=== PATIENT | male | born 2000 ===

== ENCOUNTER 2022-04-14 00:34 | Emergency (ER) | payer MEDICAID ==
[~2022-04-14] VITALS: Ht 187 cm; Wt 100.0 kg
[2022-04-14] MEDS ORDERED: RX-NAPROXEN (NAPROSYN) 250 MG TAB PPK#4 PO STA (02:44)
[2022-04-14 02:46] VITALS: BP 119/81
[2022-04-14] MEDS ORDERED: NAPR500T8 PO (02:46)
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
--- NOTE | 2022-04-14 06:54 | Diagnostic Imaging Report ---
INDICATION: forearm pain COMPARISON: None. FINDINGS: Multiple radiographic views of the left forearm were obtained and show no fractures, dislocations, or other acute bony abnormalities. Joint spaces are well maintained throughout. The soft tissues appear unremarkable. No unexpected radiopaque foreign bodies are identified. IMPRESSION: Unremarkable radiographic exam of the left forearm. Dictated by: Dictated on workstation # [id number]
--- NOTE | 2022-04-14 06:55 | Diagnostic Imaging Report ---
Indication: Upper left arm pain. Comparison: None. Discussion: Two views of left humerus were obtained. No acute fracture, dislocation, or other osseous abnormality identified. No significant degenerative disease. Alignment is anatomic. Soft tissues are unremarkable. Impression: 1. Negative left humerus. Dictated by: Dictated on workstation # [id number]
--- NOTE | 2022-04-14 06:56 | Diagnostic Imaging Report ---
Indication: Left elbow pain. Comparison: None. Discussion: Four views of the left elbow were obtained. No acute fracture, dislocation, or other osseous abnormality identified. No significant degenerative disease. Alignment is anatomic. Soft tissues are unremarkable. No effusion. Impression: 1. Negative left elbow. Dictated by: Dictated on workstation # [id number]
== END 2022-04-14 02:56 | disposition home or self-care (01) ==
LOC: ER 00:38
DX: S50.02XA Contusion of left elbow, initial encounter (principal); F17.290 Nicotine dependence, other tobacco product, uncomplicated; V28.4XXA Motorcycle driver injured in noncollision transport accident in traffic accident, initial encounter; Y93.55 Activity, bike riding; Y92.410 Unspecified street and highway as the place of occurrence of the external cause
CPT/HCPCS: 73060; 73080; 73090; 99282; A4565

== ENCOUNTER 2022-04-15 09:14 | Emergency (ER) | payer MEDICAID ==
[~2022-04-15] VITALS: Ht 187.9 cm; Wt 95.2 kg
[~2022-04-15 09:14] MED LIST: NAPR500T8 PO
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
[2022-04-15 11:28] VITALS: BP 129/82
== END 2022-04-15 11:28 | disposition home or self-care (01) ==
LOC: EDUNIT# 09:14 → ER 09:20
DX: S50.02XA Contusion of left elbow, initial encounter (principal); Z28.310 Unvaccinated for COVID-19; V23.4XXA Motorcycle driver injured in collision with car, pick-up truck or van in traffic accident, initial encounter; Y93.I9 Activity, other involving external motion; Y92.410 Unspecified street and highway as the place of occurrence of the external cause
CPT/HCPCS: 73080

== ENCOUNTER 2022-05-05 06:42 | Emergency (ER) | payer MEDICAID ==
[~2022-05-05] VITALS: Ht 188 cm; Wt 95.2 kg
[2022-05-05 06:49] VITALS: BP 139/102
--- NOTE | 2022-05-05 07:02 | ED GU-Male ---
General Chief Complaint: - Reproductive Stated Complaint: PENIS DISCOMFORT Nursing Triage Note: c/o penile pain/discharge today after intercourse this weekend. Source: patient Exam Limitations: no limitations History of Present Illness Date Seen by Provider: May 05, 2022 Time Seen by Provider: 06:57 Initial Comments Here with report of penile discharge that started this morning. Reports unprotected sexual intercourse this weekend. He has never had anything like this before. Does complain of burning with urination. Denies any penile lesions or other concerns. Timing/Duration: this morning Severity/Quality: mild Location: urethral Radiation: none Sexual Breese History: less than 2 months ago, single partner Associated Symptoms: No fever/chills, No nausea/vomiting Allergies and Home Medications Allergies Coded Allergies: No Known Drug Allergies (Unverified , 04/14/22) Patient Home Medication List Home Medication List Reviewed: Yes Naproxen (Naproxen) 500 Mg Tablet.dr, 500 MG PO BID Prescribed by: RENE ANTONIO on 04/14/22 0246 Review of Systems Review of Systems Constitutional: see HPI; No chills, No fever Gastrointestinal: No nausea, No vomiting Genitourinary: see HPI, burning, discharge Skin: No change in color, No lesions Past Fdkgass-Ftsnpt-Ttbczj Hx Patient Social History Tobacco Use?: Yes Substance use?: No Alcohol Use?: Yes Pt feels they are or have been: No Immunizations Up To Date First/Initial COVID19 Vaccinat: none Past Medical History Surgery/Hospitalization HX: denies Musculoskeletal: Yes Fractures Family Medical History Reviewed Nursing Family Hx No Pertinent Family Hx Physical Exam Vital Signs Vital Signs - First Documented 05/05/22 06:49 Temp 36.3 Pulse 105 Resp 20 B/P (MAP) 139/102 (114) Pulse Ox 97 O2 Delivery Room Air Capillary Refill : Less Than 3 Seconds Height, Weight, BMI Height: '" Weight: lbs. oz. kg; 26.00 BMI Method: General Appearance: WD/WN, no apparent distress Cardiovascular: regular rate, rhythm, no murmur Respiratory: lungs clear, normal breath sounds Neurologic/Psychiatric: alert, oriented x 3 Progress/Results/Core Measures Suspected Sepsis SIRS Temperature: Pulse: 105 Respiratory Rate: 20 Blood Pressure 139 /102 Mean: 114 Results/Orders Lab Results Laboratory Tests Test 05/05/22 06:55 Range/Units My Orders Orders - FRANKLIN LEE MD Ua Culture If Indicated (05/05/22 06:59) Neis Osman Dna Urine Test (05/05/22 06:59) Chlamydia Trachomatis Urine (05/05/22 06:59) Ceftriaxone (Rocephin) (05/05/22 07:15) Azithromycin Tablet (Zithromax Tablet) (05/05/22 07:13) Lidocaine 1% Inj 20 Ml (Xylocaine 1% Inj (05/05/22 07:15) Vital Signs/I&O 05/05/22 06:49 Temp 36.3 Pulse 105 Resp 20 B/P (MAP) 139/102 (114) Pulse Ox 97 O2 Delivery Room Air Capillary Refill : Less Than 3 Seconds Blood Pressure Mean: 114 Progress Note : Progress Note Seen and evaluated. UA with GC and chlamydia evaluation ordered. Patient declined genital exam. Rocephin 250 mg IM and azithromycin 1 g p.o. for suspected STI. Discharged home with return precautions. Patient verbalized understand instructions and agreement with plan. Departure Impression Primary Impression: STI (sexually transmitted infection) Disposition: HOME, SELF-CARE Condition: Stable Departure-Patient Inst. Decision time for Depature: 07:29 Referrals: NO,LOCAL PHYSICIAN (PCP/Family) Primary Care Physician Patient Instructions: Sexually-Transmitted Diseases (DC) Add. Discharge Instructions: All discharge instructions reviewed with patient and/or family. Voiced understanding. You are being treated for sexually transmitted infection. If the cultures are positive, you will be called by both the hospital and the health department. You should abstain from sexual activity until cleared and for a minimum of at least 1 week. Use condoms during sexual activity otherwise. Return for worse pain, swelling, skin lesions on the penis or in the groin area, fever or other concerns as needed. FRANKLIN LEE MD May 05, 2022 07:02
[2022-05-05] MEDS ORDERED: AZITHROMYCIN 250 MG TAB (ZITHROMAX) PO STA (07:13)
[2022-05-05] MEDS ORDERED: cefTRIAXone 250 MG/2.5 ML ML IM ONE (07:15)
[2022-05-05] MEDS ORDERED: LIDOCAINE 1% INJ 20 ML VIAL INJ ONE (07:15)
[2022-05-05 07:21] LABS: BILIRUBIN,URINE NEGATIVE (NEGATIVE); CLARITY,URINE CLEAR; COLOR,URINE YELLOW; GLUCOSE, URINE (UA) NEGATIVE (NEGATIVE); KETONES,URINE NEGATIVE (NEGATIVE); LEUKOCYTE ESTERASE ,URINE NEGATIVE (NEGATIVE); NITRITE,URINE NEGATIVE (NEGATIVE); PROTEIN,URINE NEGATIVE (NEGATIVE)
[2022-05-05] MEDS ORDERED: LIDOCAINE 1% INJ 10 ML VIAL ONE (07:23)
[2022-05-05 07:36] LABS: AMORPHOUS SEDIMENT,UR FEW AMOR URATES /LPF; BACTERIA,URINE NEGATIVE /HPF; WBC,URINE RARE /HPF
[2022-05-05] MEDS ORDERED: LIDOCAINE 1% INJ 10 ML VIAL INJ ONE (07:45)
== END 2022-05-05 07:40 | disposition home or self-care (01) ==
LOC: EDUNIT# 06:42 → ER 06:45
DX: A64 Unspecified sexually transmitted disease (principal); Z72.0 Tobacco use; Z28.310 Unvaccinated for COVID-19
CPT/HCPCS: 36415; 81000; 87491; 87591; 99283